=== PATIENT | male | born 1990 | race Caucasian/White ===

== ENCOUNTER → 2024-01-18 12:49 | Outpatient (REF) | payer BC, SELFPAY | LOC: RCS 12:49 | PROVIDERS: ATTENDING PHYSICIAN Nurse Practitioner | DX: R07.9 Chest pain, unspecified (principal); R94.31 Abnormal electrocardiogram [ECG] [EKG] | CPT/HCPCS: 93017; 93350 ==

== ENCOUNTER 2025-04-16 08:50 | Emergency (ER) | payer BC, SELFPAY ==
[2025-04-16 08:51] VITALS: BP 125/88
--- NOTE | 2025-04-16 09:21 | ED.GENMED ---
History of Present Illness
<Alfonzo Dobbs MD, Resident - Last Filed: 04/16/25 10:31>
General
Chief Complaint: Chest Pain
Source: patient
Time Seen by Provider: 04/16/25 09:07
History of Present Illness
History of Present Illness:
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 He has been having
intermittent chest pain for the last 1 year, once every 2 to 3 months. His primary care physician at [place], has tested him with Holter monitor and stress test and everything has been negative so far. He has an appointment scheduled with
[employer] policy professor on May 02.
Last Tuesday, about 8 days ago, after working out he had sharp pain in his left chest, he rated it 7 out of 10, nonradiating, exacerbated by position change, relieved by rest and Advil. He denies any associated symptoms including nausea, vomiting,
diaphoresis, syncopal or near syncopal episode.
Today he rates his pain 1 out of 10, and he presented to ED because he still has time and has appointment with his [employer] policy professor.
Past History
<Alfonzo Dobbs MD, Resident - Last Filed: 04/16/25 10:31>
Past History
ED Past Medical History: None
ED Past Surgical History: None
Social History
Alcohol: Occasional
Drug: Marijuana (Smokes)
Personal: Single
Family History
Family History: Other (Stroke)
Phy Exam
<Alfonzo Dobbs MD, Resident - Last Filed: 04/16/25 10:31>
General Physical Exam
General Presentation: well appearing and no apparent distress
General Skin: warm and dry
General Habitus: normal
General Mental: alert
General Hydration: appears well hydrated
Cardiovascular Exam
Cardiovascular Exam: regular rate/rhythm, no edema, no gallop, no murmur and normal peripheral pulses
Pulmonary Exam
Pulmonary Exam: lungs clear, no respiratory distress, no rales, no crackles and no rhonchi
Gastrointestinal Exam
Gastrointestinal Exam: normal bowel sounds, non tender and soft
Neurological Exam
Neurological Exam: alert, oriented x3, no motor deficits and no sensory deficits
Musculoskeletal Exam
Musculoskeletal Exam: full ROM and neuro vasc intact
Skin Exam
Skin Exam: normal color, warm/dry and no rash
Psychiatric Exam
Psychiatric Exam: normal mood/affect
Scores
<Aflonzo Dobbs MD, Resident - Last Filed: 04/16/25 10:31>
Heart Score for Chest Pain Patients
STEMI patient?: No
History: Slightly or Non-Suspicious
ECG: Normal
Age: </= 45 years
Risk Factors: No Risk Factors
Troponin: </= Normal Limit
Heart Score for Chest Pain Patients: 0
Heart Score Risk: 2.5% MACE over next 6 weeks
Course
<Alfonzo Dobbs MD, Resident - Last Filed: 04/16/25 10:31>
Orders/Labs/Results
Orders:
Orders
04/16/25 08:52
EKG [Electrocardiogram (*1)] Urgent
Reason for Study: Chest Pain
EKG- Treatment ONCE
04/16/25 09:19
Ibuprofen [Motrin] 600 mg PO NOW ONE
Chest [CR Chest - 2 Views ] Urgent
Comment:
Reason For Exam: chest pain
04/16/25 09:32
Troponin I Urgent
Vital Signs
Initial and Last Documented VS:
Initial Vital Signs
Temp Pulse Resp BP Pulse Ox
98.4 F 80 18 125/88 100
04/16/25 08:51 04/16/25 08:51 04/16/25 08:51 04/16/25 08:51 04/16/25 08:51
Last Documented Vital Signs
Temp Pulse Resp BP Pulse Ox
98.4 F 80 18 133/55 100
04/16/25 08:51 04/16/25 08:51 04/16/25 08:51 04/16/25 09:45 04/16/25 09:21
<Duane Garcia DO - Last Filed: 04/16/25 09:49>
Orders/Labs/Results
Orders:
Orders
04/16/25 08:52
EKG [Electrocardiogram (*1)] Urgent
Reason for Study: Chest Pain
EKG- Treatment ONCE
04/16/25 09:19
Ibuprofen [Motrin] 600 mg PO NOW ONE
Chest [CR Chest - 2 Views ] Urgent
Comment:
Reason For Exam: chest pain
04/16/25 09:32
Troponin I Urgent
Vital Signs
Initial and Last Documented VS:
Initial Vital Signs
Temp Pulse Resp BP Pulse Ox
98.4 F 80 18 125/88 100
04/16/25 08:51 04/16/25 08:51 04/16/25 08:51 04/16/25 08:51 04/16/25 08:51
Last Documented Vital Signs
Temp Pulse Resp BP Pulse Ox
98.4 F 80 18 133/55 100
04/16/25 08:51 04/16/25 08:51 04/16/25 08:51 04/16/25 09:45 04/16/25 09:21
<Alfonzo Dobbs MD, Resident - Last Filed: 04/16/25 10:31>
MDM/Problems Addressed
Differential Diagnosis Includes:
Acute coronary syndrome
Pneumothorax
Pancreatitis
Aortic dissection
Pulmonary embolism
MDM/Problems Addressed:
Based on clinical assessment, patient is physically active with no respecters for pulmonary embolism, no benefit of further testing
Denies any associated back pain, nausea or vomiting looks comfortable, less likely pancreatitis
Will check a chest x-ray to rule out any pneumothorax/aortic dissection
EKG normal, chest pain atypical, troponin levels normal
Reassured the patient, advised to keep appointment with cardiology
Use [id number] pain medicine as needed, can use heat/ice to help with pain
Follow-up with PCP
<Alfonzo Dobbs MD, Resident - Last Filed: 04/16/25 10:31>
*Pulse Oximetry
SaO2: 100
Oxygen Mode of Delivery: Room air
Patient hypoxic: no
*Critical Care Note
Total Time (30-74mins, 75-104mins- exclusive of procedures): Not Applicable
ED Attending Note
<Alfonzo Dobbs MD, Resident - Last Filed: 04/16/25 10:31>
-
Portions of this chart may have been created with voice recognition software.� Occasional wrong word or��sound alike� substitutions may have occurred due to the inherent limitations of voice recognition software.
<Duane Garcia, DO - Last Filed: 04/16/25 09:49>
ED Attending Note
Patient seen and examined by attending physician: Yes
I performed a history and physical exam of patient and discussed management with resident, I reviewed resident's note and agree with documented findings and plan of care.: Yes
ED Attending Note:
Seen with resident examined independently reproducible anterior chest wall pain after using exercise machine, sharp cannot take a deep breath, better when he turns to the side, EKG looks nonischemic, chest x-ray noted no obvious pneumothorax suspect
musculoskeletal causes, recommend rest and NSAIDs
Discharge Plan
Departure
Patient Disposition: Home (Routine Discharge)
Date of Disposition: 04/16/25
Time of Disposition: 10:25
Patient with high blood pressure during this ER visit?: No
Discharge Problem:
Chest pain
Instructions: Costochondritis (DC), Chest Pain
Activity Restrictions/Additional Instructions:
USE PAIN MEDICATIONS NEEDED
CONTINUE MASSAGE/HEAT/ICE FOR SYMPTOM RELIEF
KEEP YOUR APTT WITH CARDIOLOGY ON
PLEASE COME BACK TO ER IF CHEST PAIN IS WORSE,ASSOCIATED WITH NAUSEA,VOMITING,SYNCOPE,FEVER,DIAPHORESIS OR YOU DEVELOP WORRISOME SIGNS
Interventions
Interventions:
*Risk Screen - Suicide Last Done: 04/16/25 08:51
*General Assessment Last Done: 04/16/25 08:51
*Neglect/Abuse Screening Last Done: 04/16/25 08:51
*ED COVID-19 Vaccine History Last Done: 04/16/25 08:51
*ED Influenza Vaccine History Last Done: 04/16/25 08:51
ED- Cardiac Assessment Last Done: 04/16/25 09:45
Discharge Date and Time
Print Language: SWEDISH
[2025-04-16 09:45] VITALS: BP 133/55; BMI 21.5
[2025-04-16 10:23] LABS: Troponin I < 0.012 ng/ml
== END 2025-04-16 10:41 | disposition home or self-care (01) ==
LOC: EMR 08:50
PROVIDERS: EMERGENCY PHYSICIAN Emergency Medicine; FAMILY PHYSICIAN Nurse Practitioner
DX: R07.9 Chest pain, unspecified (principal); F12.90 Cannabis use, unspecified, uncomplicated; Z82.3 Family history of stroke
CPT/HCPCS: 99284; 71046; 84484; 93005